=== PATIENT | female | born 1960 | race Caucasian/White ===

== ENCOUNTER 2021-01-24 11:47 | Outpatient (CLI) | payer BC, SELFPAY | END 2021-01-24 11:48 | disposition home or self-care (01) | LOC: ANHCOVIDVC 11:47 | DX: Z23 Encounter for immunization (principal) | CPT/HCPCS: 0001A; 91300 ==

== ENCOUNTER 2021-02-14 11:26 | Outpatient (CLI) | payer BC, SELFPAY | END 2021-02-14 11:27 | disposition home or self-care (01) | LOC: ANHCOVIDVC 11:26 | DX: Z23 Encounter for immunization (principal) | CPT/HCPCS: 0002A; 91300 ==